=== PATIENT | male | born 1970 | race Asian ===

== ENCOUNTER → 2018-08-06 | Outpatient (CLI) | payer OTHER | END | disposition home or self-care (01) | LOC: CFH 07:24 | PROVIDERS: ATTEND Family Medicine | DX: Z00.00 Encounter for general adult medical examination without abnormal findings (principal) | CPT/HCPCS: 71046; 74241; 76700 ==

== ENCOUNTER 2019-08-22 08:01 | Outpatient (CLI) | payer OTHER | END 2019-08-22 23:59 | disposition home or self-care (01) | LOC: RAD 08:01 | PROVIDERS: ATTEND Family Medicine | DX: Z00.00 Encounter for general adult medical examination without abnormal findings (principal) | CPT/HCPCS: 71046; 74241; 76700 ==